=== PATIENT | female | born 2000 | race Two or more races ===

== ENCOUNTER → 2022-07-04 | Emergency (ER) | payer MEDICAID, OTHER | END | disposition left against medical advice (07) | LOC: ER 17:49 | DX: J11.1 Influenza due to unidentified influenza virus with other respiratory manifestations (principal); Z53.21 Procedure and treatment not carried out due to patient leaving prior to being seen by health care provider ==

== ENCOUNTER 2022-08-30 00:45 | Observation (INO) | payer MEDICAID, OTHER ==
[~2022-08-30] VITALS: Ht 170.2 cm; Wt 93.4 kg
== END 2022-08-30 02:34 | disposition home or self-care (01) ==
LOC: LDRP 00:45
PROVIDERS: ADMIT Obstetrics & Gynecology; ATTEND Obstetrics & Gynecology
DX: Z34.83 Encounter for supervision of other normal pregnancy, third trimester (principal); Z87.891 Personal history of nicotine dependence; Z3A.38 38 weeks gestation of pregnancy
CPT/HCPCS: 59025; 81002; 84112; 94760; G0378; Q0114

== ENCOUNTER 2022-09-01 15:30 | Observation (INO) | payer MEDICAID ==
[2022-09-01] MEDS ORDERED: PREN-96 PO (17:42)
== END 2022-09-01 17:56 | disposition home or self-care (01) ==
LOC: UNDOADMOB 15:30 → LDRP 15:30 → UNDODISOB 17:56
PROVIDERS: ADMIT Obstetrics & Gynecology; ATTEND Obstetrics & Gynecology
DX: O42.92 Full-term premature rupture of membranes, unspecified as to length of time between rupture and onset of labor (principal); O62.9 Abnormality of forces of labor, unspecified; Z3A.38 38 weeks gestation of pregnancy
CPT/HCPCS: 59025; 81002; 84112; G0378; Q0114

== ENCOUNTER 2022-09-14 05:35 | Observation (INO) | payer MEDICAID ==
[~2022-09-14] VITALS: Ht 167.6 cm; Wt 94.3 kg
[~2022-09-14 05:35] MED LIST: PREN-96 PO
== END 2022-09-14 06:54 | disposition home or self-care (01) ==
LOC: LDRP 05:35
PROVIDERS: ADMIT Obstetrics & Gynecology; ATTEND Obstetrics & Gynecology
DX: O62.9 Abnormality of forces of labor, unspecified (principal); Z3A.40 40 weeks gestation of pregnancy; Z87.891 Personal history of nicotine dependence
CPT/HCPCS: 59025; 81002; 94760; G0378

== ENCOUNTER 2022-09-15 03:51 | Inpatient (IN) | payer MEDICAID ==
[~2022-09-15] VITALS: Ht 167.6 cm; Wt 94.3 kg
[2022-09-15] MEDS ORDERED: BUTORPHANOL TARTRATE 2 MG/1 ML VIAL IV PRN ×2 (06:00)
[2022-09-15] MEDS ORDERED: PROMETHAZINE HCL 25 MG/ML 1ML IM PRN (06:00)
[2022-09-15] MEDS ORDERED: LACTATED RINGER'S 1,000 ML IV SCH (06:00)
[2022-09-15] MEDS ORDERED: LIDOCAINE 2%HCL (LOCAL ANESTH.) INJ 10ml MDV IJ PRN (06:00)
[2022-09-15] MEDS ORDERED: PHISODERM TOP SOLN 240ML BTL TOP PRN (06:00)
[2022-09-15] MEDS ORDERED: DERMOPLAST 60ML BOTTLE TOP PRN (06:00)
[2022-09-15] MEDS ORDERED: WITCH HAZEL-GLYCERIN PAD TOP PRN (06:00)
[2022-09-15 06:24] LABS: Eosinophils # (auto) 0 10 ^3/uL (0-0.8); Monocytes # (auto) 0.8 10 ^3/uL (0-1.3)
[2022-09-15 06:25] LABS: Basophils # (auto) 0.3 10 ^3/uL (0-0.2); Basophils % (auto) 1.8 % (0.0-2.0); Eosinophils % (auto) 0.3 % (0.0-7.0); Hematocrit 34.5 % (36.0-46.0); Hemoglobin 11.3 g/dL (12.2-16.2); Mean Corpuscular Hemoglobin 26.6 pg (28.0-32.0); Mean Corpuscular Hgb Conc. 32.8 g/dL (32.0-36.0); Mean Corpuscular Volume 80.9 fL (80.0-100.0); Monocytes % (auto) 5.7 % (0.0-12.0); Neutrophils # (auto) 10.5 10 ^3/uL (1.6-8.6); Neutrophils % (auto) 77.2 % (37.0-80.0); Red Blood Cells 4.26 10^6/uL (4.0-5.20); Red Cell Distribution Width 14.9 % (11.8-14.3); White Blood Cell 13.6 10^3/uL (4.4-10.8)
[2022-09-15 06:43] LABS: Urine Bacteria NONE SEEN /hpf (None Seen); Urine Blood TRACE /uL (Negative); Urine Mucus FEW (None Seen); Urine Specific Gravity 1.018 (1.001-1.035); Urine WBC 1 /hpf (0 - 5)
[2022-09-15 06:54] LABS: Albumin 3.1 g/dL (3.4-5.0); BUN/Creatinine Ratio 17.5; Bilirubin, Total 0.4 mg/dL (0.2-1.0); Calcium 9.2 mg/dL (8.5-10.1); INR 0.92 (0.9-1.15); Partial Thromboplastin Time 24.6 sec (24.6-33.4); Potassium 3.5 mmol/L (3.5-5.1); Total Protein 7.1 g/dL (6.4-8.2)
[2022-09-15 07:28] LABS: Amphetamine Screen, Urine NEGATIVE (NEGATIVE); Barbiturate Scree,Urine NEGATIVE (NEGATIVE); Benzodiazephine Screen, Urine NEGATIVE (NEGATIVE); Cannabinoid Screen, Urine NEGATIVE (NEGATIVE); Cocaine Screen, Urine NEGATIVE (NEGATIVE); Opiate Scree,Urine NEGATIVE (NEGATIVE); Phencyclidine Screen, Urine NEGATIVE (NEGATIVE)
[2022-09-15] MEDS ORDERED: LACT. RINGERS/OXYTOCIN 20UNITS 1,000 ML IV SCH (07:45)
[2022-09-15] MEDS ORDERED: ROPIVACAINE HCL 200 ML EPI SCH (08:00)
[2022-09-15] MEDS ORDERED: LIDOCAINE 1%-Mpf/Epinephrine 1:200,000 IJ ONE (08:00)
[2022-09-15] MEDS ORDERED: LACTATED RINGER'S 1,000 ML IV ONE (08:00)
[2022-09-15] MEDS ORDERED: LACTATED RINGER'S 500 ML IV ONE (08:00)
[2022-09-15] MEDS ORDERED: LIDOCAINE HCL 2 %PF INJ 10ML AMP IJ ONE (08:00)
[2022-09-15] MEDS ORDERED: NALOXONE HCL 0.4 MG/ML VIAL IV ONE (08:00)
[2022-09-15] MEDS ORDERED: ePHEDrine SULFATE 50 MG/ML AMP IV ONE (08:00)
[2022-09-15] MEDS ORDERED: fentaNYL CITRATE 100 MCG/2 ML VL IV ONE (08:00)
[2022-09-15] MEDS ORDERED: fentaNYL CITRATE 100 MCG/2 ML VL ONE (08:21)
[2022-09-15] MEDS ORDERED: LACT. RINGERS/OXYTOCIN 20UNITS 500 ML IV ONE ×2 (12:00→12:30)
[2022-09-15] MEDS ORDERED: LIDOCAINE 2%HCL (LOCAL ANESTH.) INJ 20ML MDV ONE (12:25)
[2022-09-15] MEDS ORDERED: METHYLERGONOVINE MALEATE 0.2 MG/ML AMP IM ONE ×2 (12:30→12:38)
[2022-09-15] MEDS ORDERED: ceFAZolin 2 GM in D5W 5% 100 ML IV ONE (14:45)
[2022-09-15] MEDS ORDERED: ACETAMINOPHEN 325 MG TAB PO PRN (15:15)
[2022-09-15] MEDS ORDERED: ONDANSETRON ODT 4 MG TAB PO PRN (15:15)
[2022-09-15] MEDS: IBUPROFEN 600 MG TAB PO PRN (17:20)
[2022-09-15 18:00] VITALS: BP 113/77
[2022-09-15 19:00] VITALS: BP 117/54
[2022-09-15] MEDS ORDERED: DOCUSATE SOD 100 MG CAP PO SCH (22:00)
[2022-09-15 23:00] VITALS: BP 114/58
[2022-09-15] MEDS: ceFAZolin 1GM/50ML 50 ML IV SCH (23:33)
[2022-09-16 03:00] VITALS: BP 103/57
[2022-09-16 05:06] LABS: RPR Non Reactive (Non Reactive)
[2022-09-16] MEDS: IBUPROFEN 600 MG TAB PO PRN ×2 (05:34→15:04)
[2022-09-16 07:00] VITALS: BP 128/66
[2022-09-16] MEDS: ceFAZolin 1GM/50ML 50 ML IV SCH ×2 (07:20→15:11)
[2022-09-16 11:30] VITALS: BP 102/60
[2022-09-16 15:00] VITALS: BP 110/63
[2022-09-16 16:55] VITALS: BP 110/63
== END 2022-09-16 16:55 | disposition home or self-care (01) | DRG 560 ==
LOC: LDRP 03:51 → OBSVTOIN 05:52 → LDRP 20:49
PROVIDERS: ADMIT Obstetrics & Gynecology Obstetrics; ATTEND Obstetrics & Gynecology Obstetrics
PROC: 10D07Z6 Extraction of Products of Conception, Vacuum, Via Natural or Artificial Opening (ICD-10-PCS; principal; 2022-09-15)
PROC: 0KQM0ZZ Repair Perineum Muscle, Open Approach (ICD-10-PCS; 2022-09-15)
PROC: 3E0R3BZ Introduction of Anesthetic Agent into Spinal Canal, Percutaneous Approach (ICD-10-PCS; 2022-09-15)
PROC: 00HU33Z Insertion of Infusion Device into Spinal Canal, Percutaneous Approach (ICD-10-PCS; 2022-09-15)
PROC: 0W8NXZZ Division of Female Perineum, External Approach (ICD-10-PCS; 2022-09-15)
DX: O48.0 Post-term pregnancy (principal); Z37.0 Single live birth; O70.1 Second degree perineal laceration during delivery; Z3A.40 40 weeks gestation of pregnancy; Z20.822 Contact with and (suspected) exposure to COVID-19
CPT/HCPCS: 36415; 59025; 59409; 62282; 80053; 80307; 81001; 81002; 85025; 85610; 85730; 86592; 86850; 86900; 86901; 87426; 94760; 96360; 96365; 96366; 96372; G0378; J0690; J2590; J7060